=== PATIENT | male | born 1950 | race Caucasian/White ===

== ENCOUNTER 2017-01-18 09:56 | Inpatient (IN) | payer OTHER ==
[~2017-01-18] VITALS: Ht 172.7 cm; Wt 66.7 kg
[~2017-01-18 09:56] MED LIST: TAMS-11 PO
[2017-01-18 10:28] LABS: HEMATOCRIT 49.7 % (39.2-51.8); HEMOGLOBIN 16.7 g/dL (13.7-18.0); WHITE BLOOD COUNT 12.9 x10^3/uL (3.4-10)
[2017-01-18] MEDS ORDERED: SODIUM CHLORIDE FLUSH 10ML SYR IVF ONE (10:30)
[2017-01-18] MEDS ORDERED: ASPIRIN 81 MG TABLET CHEW PO ONE (10:30)
[2017-01-18] MEDS ORDERED: MIDAZOLAM 1 MG/ML, 5ML ONE (10:37)
[2017-01-18] MEDS ORDERED: FENTANYL PF 100 MCG/2ML ONE (10:37)
[2017-01-18] MEDS ORDERED: NITROGLYCERIN 5 MG/ML, 10ML ONE (10:37)
[2017-01-18] MEDS ORDERED: VERAPAMIL 2.5 MG/ML, 2ML ONE (10:38)
[2017-01-18] MEDS ORDERED: BIVALIRUDIN 250 MG ONE (10:38)
[2017-01-18] MEDS ORDERED: TICAGRELOR 90 MG TABLET ONE (10:38)
[2017-01-18] MEDS ORDERED: HEPARIN 1,000 UNITS/ML, 10ML ONE (10:38)
[2017-01-18] MEDS ORDERED: LIDOCAINE 2%, 20ML ONE (10:38)
[2017-01-18 10:40] LABS: ASPARTATE AMINO TRANSFERASE 39 U/L (15-37); BLOOD UREA NITROGEN 24 mg/dL (7-18)
[2017-01-18 10:51] LABS: IS PT STATUS REG ER OR PRE ER? YES
[2017-01-18] MEDS ORDERED: ONDANSETRON 2MG/ML, 2ML IVPush PRN (11:00)
[2017-01-18] MEDS ORDERED: ASPIRIN 81 MG TABLET EC PO ONE (11:00)
[2017-01-18] MEDS ORDERED: morphine SULFATE 10 MG/ML, 1ML IVPush PRN (11:00)
[2017-01-18] MEDS ORDERED: NITROGLYCERIN 0.4 MG/SPRAY SL PRN (11:00)
[2017-01-18] MEDS ORDERED: SODIUM CHLORIDE 0.9% 1,000ML IVBOLUS ONE (11:00)
[2017-01-18] MEDS ORDERED: NITROGLYCERIN 0.4 MG BOTTLE (25 TABS) SL PRN (11:00)
[2017-01-18] MEDS ORDERED: ZOLPIDEM 5MG TABLET PO PRN (11:00)
[2017-01-18] MEDS ORDERED: NITROGLYCERIN SINGLE TAB 0.4 MG SL PRN (11:00)
[2017-01-18] MEDS ORDERED: ASPIRIN 81 MG TABLET CHEW ONE (11:02)
[2017-01-18] MEDS ORDERED: ATROPINE SYRINGE 0.1 MG/ML, 10ML ONE (11:34)
[2017-01-18] MEDS ORDERED: PRASUGREL 10 MG TABLET ONE (11:34)
[2017-01-18] MEDS ORDERED: BIVALIRUDIN 250 MG in DEXTROSE 5% 50 ML IV SCH (11:47)
[2017-01-18 12:22] VITALS: BP 112/65
[2017-01-18 17:08] LABS: IS PT STATUS REG ER OR PRE ER? NO
[2017-01-18] MEDS: SODIUM CHLORIDE 0.9% 1,000 ML IV SCH (19:30)
[2017-01-18] MEDS: ATORVASTATIN 80 MG TABLET PO SCH (21:27)
[2017-01-18 23:23] LABS: IS PT STATUS REG ER OR PRE ER? NO
[2017-01-19] MEDS: SODIUM CHLORIDE 0.9% 1,000 ML IV SCH ×2 (03:06→10:56)
[2017-01-19 03:56] VITALS: BP 102/52
[2017-01-19 04:16] LABS: HEMATOCRIT 44.7 % (39.2-51.8)
[2017-01-19 04:27] LABS: BLOOD UREA NITROGEN 19 mg/dL (7-18)
[2017-01-19 04:48] LABS: IS PT STATUS REG ER OR PRE ER? NO
[2017-01-19] MEDS ORDERED: TAMSULOSIN 0.4 MG CAP.ER.24H PO SCH (09:00)
[2017-01-19] MEDS: METOPROLOL TARTRATE 25 MG TABLET PO SCH (09:05)
[2017-01-19] MEDS: ASPIRIN 325 MG TABLET EC PO SCH (09:35)
[2017-01-19] MEDS: PRASUGREL 10 MG TABLET PO SCH (09:35)
[2017-01-19] MEDS ORDERED: TAMSULOSIN 0.4 MG CAP.ER.24H HOMEMEDPO SCH (11:00)
[2017-01-19 11:10] LABS: IS PT STATUS REG ER OR PRE ER? NO
[2017-01-19 14:48] VITALS: BP 125/72
[2017-01-19 16:49] LABS: IS PT STATUS REG ER OR PRE ER? NO
[2017-01-19 20:00] VITALS: BP 109/67
[2017-01-19] MEDS: ATORVASTATIN 80 MG TABLET PO SCH (21:17)
[2017-01-19 22:42] LABS: IS PT STATUS REG ER OR PRE ER? NO
[2017-01-20 02:52] VITALS: BP 109/67
[2017-01-20 08:09] VITALS: BP 101/62
[2017-01-20] MEDS: PRASUGREL 10 MG TABLET PO SCH (08:27)
[2017-01-20] MEDS: ASPIRIN 325 MG TABLET EC PO SCH (08:27)
[2017-01-20] MEDS: METOPROLOL TARTRATE 25 MG TABLET PO SCH (08:28)
[2017-01-20] MEDS: TAMSULOSIN 0.4 MG CAP.ER.24H PO SCH (08:28)
[2017-01-20] MEDS ORDERED: TAMSULOSIN 0.4 MG PO SCH (09:00)
[2017-01-20 14:18] VITALS: BP 93/58
[2017-01-20] MEDS ORDERED: ACETAMINOPHEN 325 MG TABLET ONE (14:54)
[2017-01-20] MEDS ORDERED: ACETAMINOPHEN 325 MG TABLET PO PRN (15:00)
[2017-01-20 20:10] VITALS: BP 100/61
[2017-01-20] MEDS: ATORVASTATIN 80 MG TABLET PO SCH (20:23)
[2017-01-21 02:18] VITALS: BP 100/61
[2017-01-21 07:21] VITALS: BP 99/62
[2017-01-21] MEDS: METOPROLOL TARTRATE 25 MG TABLET PO SCH (07:48)
[2017-01-21] MEDS: PRASUGREL 10 MG TABLET PO SCH (07:53)
[2017-01-21] MEDS: ASPIRIN 325 MG TABLET EC PO SCH (07:53)
[2017-01-21] MEDS: TAMSULOSIN 0.4 MG CAP.ER.24H PO SCH (07:54)
[2017-01-21] MEDS ORDERED: PRAS10TA4 PO (08:04)
[2017-01-21] MEDS ORDERED: ASPI-621 PO (08:04)
[2017-01-21] MEDS ORDERED: NITR0.4T SL (08:04)
[2017-01-21] MEDS ORDERED: ATOR80TA75 PO (08:04)
== END 2017-01-21 12:00 | disposition home or self-care (01) | DRG 247 ==
LOC: ED 10:13 → EDIP 10:32 → ICU 12:04 → 5SO 01-19 14:03 → DCLOUNGE 01-21 10:40
PROVIDERS: ADMIT Internal Medicine Cardiovascular Disease; ATTEND Internal Medicine Cardiovascular Disease
PROC: 027135Z Dilation of Coronary Artery, Two Arteries with Two Drug-eluting Intraluminal Devices, Percutaneous Approach (ICD-10-PCS; principal; 2017-01-18)
PROC: 4A023N7 Measurement of Cardiac Sampling and Pressure, Left Heart, Percutaneous Approach (ICD-10-PCS; 2017-01-18)
PROC: B2111ZZ Fluoroscopy of Multiple Coronary Arteries using Low Osmolar Contrast (ICD-10-PCS; 2017-01-18)
PROC: B2151ZZ Fluoroscopy of Left Heart using Low Osmolar Contrast (ICD-10-PCS; 2017-01-18)
PROC: 4A033BC Measurement of Arterial Pressure, Coronary, Percutaneous Approach (ICD-10-PCS; 2017-01-18)
DX: I21.19 ST elevation (STEMI) myocardial infarction involving other coronary artery of inferior wall (principal); I47.2 Ventricular tachycardia; E78.5 Hyperlipidemia, unspecified; I25.10 Atherosclerotic heart disease of native coronary artery without angina pectoris; R00.1 Bradycardia, unspecified; I34.0 Nonrheumatic mitral (valve) insufficiency; N40.0 Benign prostatic hyperplasia without lower urinary tract symptoms; I25.2 Old myocardial infarction; Z79.01 Long term (current) use of anticoagulants; Z87.891 Personal history of nicotine dependence
CPT/HCPCS: 36415; 71010; 80048; 80053; 80061; 82040; 83735; 84484; 85014; 85018; 85025; 85610; 85730; 87081; 93005; 93306; 93458; 99156; 99157; 99283; C1760; C9601; J0461; J0583; J1644; J2250; J3010; J3490; C1725; C1769; C1874; C1887; J7030; Q9967

== ENCOUNTER 2018-03-01 11:11 | Emergency (ER) | payer OTHER ==
[~2018-03-01] VITALS: Ht 172.7 cm; Wt 66.0 kg
[~2018-03-01 11:11] MED LIST changes: +ASPI-621 PO; +ATOR-2 PO; +NITR0.4T SL; +PRAS10TA4 PO
[2018-03-01] MEDS ORDERED: KETOROLAC 30 MG/1 ML IM ONE (11:30)
[2018-03-01] MEDS ORDERED: DIAZEPAM 5 MG TABLET PO ONE (11:30)
[2018-03-01] MEDS ORDERED: KETOROLAC 30 MG/1 ML ONE (11:38)
[2018-03-01] MEDS ORDERED: DIAZEPAM 5 MG TABLET ONE (11:39)
[2018-03-01 11:56] LABS: BASOPHILS # (AUTO) 0.06 x10^3/uL (0-0.1); BASOPHILS % (AUTO) 1 % (0-1); EOSINOPHILS # (AUTO) 0.19 x10^3/uL (0-0.4); EOSINOPHILS % (AUTO) 2 % (1-7); LYMPHOCYTES # (AUTO) 1.57 x10^3/uL (1-3.4); LYMPHOCYTES % (AUTO) 15 % (22-44); MD NO; MEAN CORPUSCULAR HEMOGLOBIN 32.1 pg (27.5-34.5); MEAN CORPUSCULAR HGB CONC 34.3 g/dL (33.2-36.2); MEAN CORPUSCULAR VOLUME 93.6 fL (81-97); MEAN PLATELET VOLUME 8.8 fL (7.4-10.4); MONOCYTES % (AUTO) 9 % (2-9); NEUTROPHILS # (AUTO) 7.92 x10^3/uL (1.8-6.8); NEUTROPHILS % (AUTO) 74 % (42-75); PLATELET COUNT 171 x10^3/uL (130-400); RED BLOOD COUNT 5.38 x10^6/uL (4.38-5.82); RED CELL DISTRIBUTION WIDTH 12.8 % (9.4-14.8)
[2018-03-01 12:08] LABS: ALBUMIN 4.1 g/dL (3.4-5.0); ANION GAP 9 mmol/L (5-15); CALCIUM 9.4 mg/dL (8.5-10.1); CHLORIDE 105 mmol/L (98-107)
[2018-03-01 12:13] LABS: CREATININE 1.06 mg/dL (0.7-1.3); TROPONIN I < 0.015 ng/mL (0.000-0.045)
[2018-03-01 13:06] VITALS: BP 111/63
== END 2018-03-01 13:48 | disposition home or self-care (01) ==
LOC: ED 13:31
DX: M54.2 Cervicalgia (principal)
CPT/HCPCS: 36415; 71045; 80048; 82040; 83880; 84484; 85025; 93005; 96372; 99285; J1885

== ENCOUNTER 2019-12-27 11:08 | Emergency (ER) | payer OTHER ==
[~2019-12-27] VITALS: Ht 172.7 cm; Wt 65.1 kg
[~2019-12-27 11:08] MED LIST changes: -ASPI-621 PO; +ASPI81TA45 PO; -NITR0.4T SL; +NITR0.4T41 SL
[2019-12-27 11:12] VITALS: BP 168/76
[2019-12-27 11:54] LABS: BASOPHILS # (AUTO) 0.04 x10^3/uL (0-0.1); BASOPHILS % (AUTO) 1 % (0-1); EOSINOPHILS # (AUTO) 0.17 x10^3/uL (0-0.4); EOSINOPHILS % (AUTO) 3 % (1-7); LYMPHOCYTES # (AUTO) 1.49 x10^3/uL (1-3.4); LYMPHOCYTES % (AUTO) 23 % (22-44); MD NO; MEAN CORPUSCULAR HGB CONC 33.6 g/dL (33.2-36.2); MEAN CORPUSCULAR VOLUME 95.4 fL (81-97); MEAN PLATELET VOLUME 8.1 fL (7.4-10.4); MONOCYTES # (AUTO) 0.54 x10^3/uL (0.2-0.8); MONOCYTES % (AUTO) 8 % (2-9); NEUTROPHILS # (AUTO) 4.36 x10^3/uL (1.8-6.8); NEUTROPHILS % (AUTO) 66 % (42-75); PLATELET COUNT 195 x10^3/uL (130-400); RED BLOOD COUNT 4.95 x10^6/uL (4.38-5.82); RED CELL DISTRIBUTION WIDTH 12.8 % (9.4-14.8)
[2019-12-27 12:08] LABS: TROPONIN I < 0.015 ng/mL (0.000-0.045)
[2019-12-27 12:09] LABS: MICROSCOPIC NOT IND
[2019-12-27] MEDS ORDERED: SODIUM CHLORIDE FLUSH 10ML SYR IVF ONE (12:30)
--- NOTE | 2019-12-27 12:30 | NUR ---
NOTIFIED BY MT THAT PT'S HR 38-45. PT STATES THIS IS NORMAL FOR HIM. PT ASYMPTOMATIC. MONITOR IN PLACE.
[2019-12-27] MEDS ORDERED: OMNIPAQUE 350 MG/ML, 100ML BOTTLE ONE (12:33)
--- NOTE | 2019-12-27 13:28 | NUR ---
Patient given discharge instructions and they have confirmed that they understand the instructions. Patient ambulatory with steady gait.
== END 2019-12-27 13:29 | disposition home or self-care (01) ==
LOC: ED 13:00
DX: R10.84 Generalized abdominal pain (principal); R00.1 Bradycardia, unspecified; I25.2 Old myocardial infarction
CPT/HCPCS: 36415; 74177; 80047; 81003; 84484; 85025; 93005; 99285; Q9967